=== PATIENT | male | born 2005 | race Caucasian/White ===

== ENCOUNTER 2025-05-17 06:33 | Day surgery (SDC) | payer BC ==
[2025-05-17] MEDS ORDERED: Propofol 200 MG/20 ML SDV ONE (06:59)
[2025-05-17] MEDS ORDERED: fentaNYL 50 MCG/ML SDV ONE (06:59)
[2025-05-17] MEDS: Lactated Ringers 1,000 ML IV SCH (07:21)
[2025-05-17] MEDS ORDERED: Ondansetron 4 MG/2 ML SDV ONE (07:49)
== END 2025-05-17 09:20 | disposition home or self-care (01) ==
LOC: JP.SDS 06:33
PROVIDERS: ATTEND Surgery
DX: K21.00 Gastro-esophageal reflux disease with esophagitis, without bleeding (principal); K44.9 Diaphragmatic hernia without obstruction or gangrene; Z88.1 Allergy status to other antibiotic agents; Z79.899 Other long term (current) drug therapy
CPT/HCPCS: 43239; J2405; J2704; J3010; J7120; 00731-QZ; 88305